=== PATIENT | male | born 1955 | race Caucasian/White ===

== ENCOUNTER 2018-06-16 16:07 | Emergency (ER) | payer OTHER ==
[~2018-06-16] VITALS: Ht 170.2 cm; Wt 94.0 kg
[2018-06-16] MEDS ORDERED: METF500T17 PO (16:13)
[2018-06-16] MEDS ORDERED: GABA300C10 PO (16:13)
[2018-06-16] MEDS ORDERED: KETOROLAC 30 MG/1 ML IVPush ONE (16:30)
[2018-06-16] MEDS ORDERED: SODIUM CHLORIDE FLUSH 10ML SYR IVF ONE (16:30)
[2018-06-16 16:46] LABS: BASOPHILS # (AUTO) 0.01 x10^3/uL (0-0.1); BASOPHILS % (AUTO) 0 % (0-1); EOSINOPHILS # (AUTO) 0.01 x10^3/uL (0-0.4); EOSINOPHILS % (AUTO) 0 % (1-7); LYMPHOCYTES # (AUTO) 0.93 x10^3/uL (1-3.4); LYMPHOCYTES % (AUTO) 7 % (22-44); MD NO; MEAN CORPUSCULAR HEMOGLOBIN 31.7 pg (27.5-34.5); MEAN CORPUSCULAR HGB CONC 35.1 g/dL (33.2-36.2); MEAN CORPUSCULAR VOLUME 90.1 fL (81-97); MEAN PLATELET VOLUME 8.9 fL (7.4-10.4); MONOCYTES # (AUTO) 0.75 x10^3/uL (0.2-0.8); MONOCYTES % (AUTO) 5 % (2-9); NEUTROPHILS # (AUTO) 12.55 x10^3/uL (1.8-6.8); NEUTROPHILS % (AUTO) 88 % (42-75); PLATELET COUNT 164 x10^3/uL (130-400); RED BLOOD COUNT 5.37 x10^6/uL (4.38-5.82); RED CELL DISTRIBUTION WIDTH 12.9 % (9.4-14.8)
[2018-06-16] MEDS ORDERED: KETOROLAC 30 MG/1 ML ONE (16:53)
[2018-06-16] MEDS ORDERED: MORPHINE SULFATE 4 MG/ML, 1ML ONE ×2 (16:53→17:54)
[2018-06-16 16:57] LABS: ALANINE AMINOTRANSFERASE 28 U/L (12-78); ALBUMIN 4.3 g/dL (3.4-5.0); ANION GAP 12 mmol/L (5-15); CALCIUM 9.3 mg/dL (8.5-10.1); CHLORIDE 105 mmol/L (98-107); CREATININE 1.09 mg/dL (0.7-1.3)
[2018-06-16 16:59] LABS: ALKALINE PHOSPHATASE 66 U/L (45-117); TOTAL PROTEIN 7.9 g/dL (6.4-8.2)
[2018-06-16] MEDS: MORPHINE SULFATE 4 MG/ML, 1ML IVPush PRN ×2 (17:00→17:55)
[2018-06-16 17:46] LABS: MICROSCOPIC INDICATED
[2018-06-16 18:00] VITALS: BP 129/91
[2018-06-16 18:14] LABS: CULTURE INDICATED? NO
== END 2018-06-16 19:37 | disposition home or self-care (01) ==
LOC: ED 19:31
DX: N13.2 Hydronephrosis with renal and ureteral calculous obstruction (principal); E11.9 Type 2 diabetes mellitus without complications
CPT/HCPCS: 36415; 74176; 80053; 81001; 83690; 85025; 96374; 96375; 96376; 99284; J1885

== ENCOUNTER 2018-06-23 10:15 | Day surgery (SDC) | payer OTHER ==
[~2018-06-23] VITALS: Ht 170.2 cm; Wt 91.4 kg
[~2018-06-23 10:15] MED LIST: GABA300C10 PO; METF500T17 PO
[2018-06-23] MEDS ORDERED: LACTATED RINGERS 1,000 ML IV SCH (10:20)
[2018-06-23 10:24] VITALS: BP 161/92
[2018-06-23] MEDS ORDERED: OXYcodone 5 MG/5 ML ORAL.SOL UDC PO PRN (11:00)
[2018-06-23] MEDS ORDERED: PROMETHAZINE 25 MG/ML, 1ML IV PRN (11:00)
[2018-06-23] MEDS ORDERED: hydrALAzine 20 MG/ML, 1ML IV PRN (11:00)
[2018-06-23] MEDS ORDERED: FENTANYL PF 100 MCG/2ML IV PRN (11:00)
[2018-06-23] MEDS ORDERED: MEPERIDINE/PF 25MG/0.5ML IVPush PRN (11:00)
[2018-06-23] MEDS ORDERED: ALBUTEROL SULFATE 2.5 MG/3 ML NPPB PRN (11:00)
[2018-06-23] MEDS ORDERED: HYDROmorphone 2 MG/ML, 1ML IVPush PRN (11:00)
[2018-06-23] MEDS ORDERED: LABETALOL 5MG/ML, 20ML IV PRN (11:00)
[2018-06-23] MEDS ORDERED: OMNIPAQUE 350 MG/ML, 50 ML BOTTLE IV ONE (11:20)
[2018-06-23] MEDS ORDERED: OMNIPAQUE 350 MG/ML, 50 ML BOTTLE ONE (12:39)
== END 2018-06-23 13:12 | disposition home or self-care (01) ==
LOC: OR 10:15 → EDSTATUS 06-24 13:32
PROVIDERS: ATTEND Urology
DX: N20.0 Calculus of kidney (principal); F17.210 Nicotine dependence, cigarettes, uncomplicated; Z88.8 Allergy status to other drugs, medicaments and biological substances; E11.9 Type 2 diabetes mellitus without complications; Z98.890 Other specified postprocedural states; Z79.899 Other long term (current) drug therapy
CPT/HCPCS: 52353; 74420; 82360; 82962; 88300; C1769; J2250; J3010; J7120; Q9967

== ENCOUNTER → 2020-03-11 | Outpatient (CLI) | payer OTHER | END | disposition home or self-care (01) | LOC: RAD 07:43 | PROVIDERS: ATTEND Physician Assistant Surgical | DX: N20.0 Calculus of kidney (principal); M47.816 Spondylosis without myelopathy or radiculopathy, lumbar region | CPT/HCPCS: 74018 ==